=== PATIENT | male | born 1960 | race Caucasian/White ===

== ENCOUNTER 2017-12-31 17:45 | Emergency (ER) | payer OTHER ==
[~2017-12-31] VITALS: Ht 177.8 cm; Wt 113.6 kg
[2017-12-31 17:51] VITALS: BP 156/88
== END 2017-12-31 19:15 | disposition home or self-care (01) ==
LOC: ER 17:47
DX: S82.831A Other fracture of upper and lower end of right fibula, initial encounter for closed fracture (principal); X58.XXXA Exposure to other specified factors, initial encounter; Y93.89 Activity, other specified; Y92.89 Other specified places as the place of occurrence of the external cause; Y99.9 Unspecified external cause status
CPT/HCPCS: 73590; 73610; 99284

== ENCOUNTER 2018-01-20 13:35 | Outpatient (CLI) | payer OTHER ==
[~2018-01-20] VITALS: Ht 177.8 cm; Wt 112.7 kg
[2018-01-20 13:28] VITALS: BP 170/89
== END 2018-01-20 14:30 | disposition home or self-care (01) ==
LOC: ORTHO 13:35
PROVIDERS: ATTEND Nurse Practitioner Family
DX: S82.451A Displaced comminuted fracture of shaft of right fibula, initial encounter for closed fracture (principal); S93.01XA Subluxation of right ankle joint, initial encounter; S82.51XA Displaced fracture of medial malleolus of right tibia, initial encounter for closed fracture; W01.0XXA Fall on same level from slipping, tripping and stumbling without subsequent striking against object, initial encounter; Y93.89 Activity, other specified; Y92.89 Other specified places as the place of occurrence of the external cause; Y99.8 Other external cause status
CPT/HCPCS: 73590; 73610; 99213

== ENCOUNTER 2018-02-05 08:28 | Day surgery (SDC) | payer MEDICAID ==
[2018-02-03 15:30] LABS: BASOPHILS # (AUTO) 0.1 X10'3 (0-0.2); BASOPHILS % (AUTO) 1.2 % (0-1); EOSINOPHILS # (AUTO) 0.1 X10'3 (0-0.9); EOSINOPHILS % (AUTO) 1.7 % (0-6); LYMPHOCYTES # (AUTO) 1.8 X10'3 (1.1-4.8); LYMPHOCYTES % (AUTO) 25.9 % (21-51); MEAN CORPUSCULAR HEMOGLOBIN 31.2 PG (27.0-31.0); MEAN CORPUSCULAR HGB CONC 33.5 % (33.0-36.5); MEAN CORPUSCULAR VOLUME 93.3 FL (78-98); MEAN PLATELET VOLUME 6.8 FL (7.4-10.4); MONOCYTES # (AUTO) 0.6 X10'3 (0-0.9); MONOCYTES % (AUTO) 8.6 % (2-12); NEUTROPHILS # (AUTO) 4.4 X10'3 (1.8-7.7); NEUTROPHILS % (AUTO) 62.6 % (42-75); PRE OP HEMATOCRIT 50.8 % (42.0-52.0); PRE OP PLATELET COUNT 249 X10'3 (140-440); RED BLOOD COUNT 5.44 X10'6 (4.70-6.10); RED CELL DISTRIBUTION WIDTH 13.1 % (11.5-14.5)
[2018-02-03 15:46] LABS: ALBUMIN 3.4 G/DL (3.4-5.0); ALBUMIN/GLOBULIN RATIO 0.8 (1.1-1.5); ALKALINE PHOSPHATASE 124 IU/L (46-116); BLOOD UREA NITROGEN 11 MG/DL (7-18); BUN/CREATININE RATIO 10.8 (5.4-32.0); CALCIUM 8.9 MG/DL (8.5-10.1); CHLORIDE 101 MMOL/L (99-107); CREATININE 1.02 MG/DL (0.60-1.10); PRE OP ALT 60 U/L (30-65); PRE OP ANION GAP 7 (8-16); PRE OP AST 36 U/L (10-37); PRE OP BILIRUB, TOTAL 0.8 MG/DL (0.0-1.0); PRE OP GLUCOSE 99 MG/DL (70-104); PRE OP POTASSIUM 3.7 MMOL/L (3.4-5.1); PRE OP SODIUM 137 MMOL/L (135-145); TOTAL CARBON DIOXIDE 29.5 MMOL/L (24-32); TOTAL PROTEIN 7.5 G/DL (6.4-8.2); eGFR 75 ML/MIN
[2018-02-03 15:50] LABS: HEMOGLOBIN A1C 5.3 % (4.5-6.2)
[~2018-02-05] VITALS: Ht 177.8 cm; Wt 113.2 kg
[2018-02-05] VITALS (7 sets, daily range): BP systolic 108–150; BP diastolic 52–82
[~2018-02-05 08:28] MED LIST: NO HOME MEDS; cefazolin/dext.iso 2gm/100 ML IV ONE; famotidine 20mg tablet PO ONE; ringers solution, lacted 1,000 ML IV SCH; vancomycin inj 1,500 MG in normal saline 300ml IV soln IV ONE
[2018-02-05] MEDS ORDERED: ringers solution, lacted 1,000 ML IV SCH (08:44)
[2018-02-05] MEDS ORDERED: morphine 4 MG/ML inj SYRINge IV PRN ×2 (08:45)
[2018-02-05] MEDS ORDERED: meperidine/PF 25mg/ml syringe IV PRN ×3 (08:45)
[2018-02-05] MEDS ORDERED: proCHLORperazine 10 MG/2 ml inj IV PRN (08:45)
[2018-02-05] MEDS ORDERED: ondansetron/PF 4mg/2ml inj IV PRN (08:45)
[2018-02-05] MEDS ORDERED: ceFAZolin 1000mg inj ONE (09:50)
[2018-02-05] MEDS ORDERED: dexamethasone sod phosphate 10mg/ml inj ONE (10:28)
[2018-02-05] MEDS ORDERED: sevoflurane 250ml liquid IH ONE (10:28)
[2018-02-05] MEDS ORDERED: ondansetron/PF 4mg/2ml inj ONE (10:28)
[2018-02-05] MEDS ORDERED: fentaNYL/PF 50MCG/1 ML 2ML syringe ONE (10:31)
[2018-02-05] MEDS ORDERED: MIDAZolam 5mg/5ml vial ONE (10:31)
[2018-02-05] MEDS ORDERED: propofol inj 20 ML IV ONE (10:43)
[2018-02-05] MEDS ORDERED: ROPIVAcaine 0.5% (5mg/ml) 30ml vial ONE (10:51)
[2018-02-05] MEDS ORDERED: LIDOcaine 1%/PF 5ML 10 MG/ML VIAL ONE (10:51)
== END 2018-02-05 13:57 | disposition home or self-care (01) ==
LOC: PAS 08:28
PROVIDERS: ATTEND Orthopaedic Surgery
DX: S82.451A Displaced comminuted fracture of shaft of right fibula, initial encounter for closed fracture (principal); S82.441A Displaced spiral fracture of shaft of right fibula, initial encounter for closed fracture; M25.371 Other instability, right ankle; I45.81 Long QT syndrome; M19.90 Unspecified osteoarthritis, unspecified site; E66.01 Morbid (severe) obesity due to excess calories; G89.18 Other acute postprocedural pain; Z72.89 Other problems related to lifestyle; Z68.35 Body mass index [BMI] 35.0-35.9, adult; Z87.442 Personal history of urinary calculi; Z98.890 Other specified postprocedural states; W01.0XXA Fall on same level from slipping, tripping and stumbling without subsequent striking against object, initial encounter; Y93.89 Activity, other specified; Y92.89 Other specified places as the place of occurrence of the external cause; Y99.8 Other external cause status
CPT/HCPCS: 27784; 27829; 36415; 64450; 71046; 80053; 83036; 85025; 93005; A6449; C1713; J0690; J1100; J2001; J2250; J2405; J2704; J3010; J3370; J7120; A7000; J2795

== ENCOUNTER 2018-02-24 09:14 | Outpatient (CLI) | payer MEDICAID ==
[2018-02-24 09:13] VITALS: BP 180/107
[~2018-02-24 09:14] MED LIST changes: -cefazolin/dext.iso 2gm/100 ML IV ONE; -famotidine 20mg tablet PO ONE; -ringers solution, lacted 1,000 ML IV SCH; -vancomycin inj 1,500 MG in normal saline 300ml IV soln IV ONE
== END 2018-02-24 10:04 | disposition home or self-care (01) ==
LOC: ORTHO 09:14
PROVIDERS: ATTEND Nurse Practitioner Family
DX: S82.451G Displaced comminuted fracture of shaft of right fibula, subsequent encounter for closed fracture with delayed healing (principal); S82.54XG Nondisplaced fracture of medial malleolus of right tibia, subsequent encounter for closed fracture with delayed healing; M77.31 Calcaneal spur, right foot; Z72.89 Other problems related to lifestyle; X58.XXXD Exposure to other specified factors, subsequent encounter
CPT/HCPCS: 73590; 99213

== ENCOUNTER 2018-03-13 09:29 | Outpatient (CLI) | payer MEDICAID ==
[2018-03-13 09:29] VITALS: BP 167/104
[2018-03-13 09:40] VITALS: BP 165/106
== END 2018-03-13 10:42 | disposition home or self-care (01) ==
LOC: ORTHO 09:29
PROVIDERS: ATTEND Nurse Practitioner Family
DX: S82.841G Displaced bimalleolar fracture of right lower leg, subsequent encounter for closed fracture with delayed healing (principal); S82.451G Displaced comminuted fracture of shaft of right fibula, subsequent encounter for closed fracture with delayed healing; Z72.89 Other problems related to lifestyle; W01.0XXD Fall on same level from slipping, tripping and stumbling without subsequent striking against object, subsequent encounter
CPT/HCPCS: 73590; 99213; A4590

== ENCOUNTER 2018-04-09 11:33 | Outpatient (CLI) | payer MEDICAID ==
[2018-04-09 11:33] VITALS: BP 161/81
== END 2018-04-09 12:22 | disposition home or self-care (01) ==
LOC: ORTHO 11:33
PROVIDERS: ATTEND Nurse Practitioner Family
DX: S82.454 Nondisplaced comminuted fracture of shaft of right fibula (principal); Z72.89 Other problems related to lifestyle; S82.51XG Displaced fracture of medial malleolus of right tibia, subsequent encounter for closed fracture with delayed healing; W01.0XXD Fall on same level from slipping, tripping and stumbling without subsequent striking against object, subsequent encounter
CPT/HCPCS: 73590; 99213

== ENCOUNTER 2018-04-13 10:34 | Emergency (ER) | payer MEDICAID ==
[~2018-04-13] VITALS: Ht 177.8 cm; Wt 120.7 kg
[2018-04-13 11:10] VITALS: BP 136/86
== END 2018-04-13 12:58 | disposition home or self-care (01) ==
LOC: ER 10:35
DX: R22.2 Localized swelling, mass and lump, trunk (principal); R31.9 Hematuria, unspecified; F10.10 Alcohol abuse, uncomplicated
CPT/HCPCS: 99281

== ENCOUNTER 2018-05-21 11:29 | Outpatient (CLI) | payer MEDICAID ==
[2018-05-21 11:38] VITALS: BP 174/93
== END 2018-05-21 12:05 | disposition home or self-care (01) ==
LOC: ORTHO 11:29
PROVIDERS: ATTEND Nurse Practitioner Family
DX: S82.51XG Displaced fracture of medial malleolus of right tibia, subsequent encounter for closed fracture with delayed healing (principal); S82.831D Other fracture of upper and lower end of right fibula, subsequent encounter for closed fracture with routine healing; Z72.89 Other problems related to lifestyle; W01.0XXD Fall on same level from slipping, tripping and stumbling without subsequent striking against object, subsequent encounter
CPT/HCPCS: 73600; 99213

== ENCOUNTER 2018-07-02 08:34 | Outpatient (CLI) | payer MEDICAID | END 2018-07-02 09:29 | disposition home or self-care (01) | LOC: ORTHO 08:34 | PROVIDERS: ATTEND Orthopaedic Surgery | DX: S82.51XK Displaced fracture of medial malleolus of right tibia, subsequent encounter for closed fracture with nonunion (principal); S82.831D Other fracture of upper and lower end of right fibula, subsequent encounter for closed fracture with routine healing; Z72.89 Other problems related to lifestyle; W01.0XXD Fall on same level from slipping, tripping and stumbling without subsequent striking against object, subsequent encounter | CPT/HCPCS: 73610; 99213 ==

== ENCOUNTER 2019-04-12 21:57 | Emergency (ER) | payer OTHER ==
[~2019-04-12] VITALS: Ht 177.8 cm; Wt 106.8 kg
[2019-04-12 22:08] VITALS: BP 150/84
== END 2019-04-13 00:09 | disposition home or self-care (01) ==
LOC: ER 21:58
DX: M79.604 Pain in right leg (principal); Z87.442 Personal history of urinary calculi; Z98.890 Other specified postprocedural states; V49.9XXA Car occupant (driver) (passenger) injured in unspecified traffic accident, initial encounter; Y93.89 Activity, other specified; Y92.413 State road as the place of occurrence of the external cause; Y99.9 Unspecified external cause status
CPT/HCPCS: 73590; 73610; 99283

== ENCOUNTER 2020-03-08 16:24 | Emergency (ER) | payer MEDICAID, OTHER ==
[~2020-03-08] VITALS: Ht 177.8 cm; Wt 119.3 kg
[2020-03-08 18:38] VITALS: BP 169/119
[2020-03-08] MEDS ORDERED: ciprofloxacin 250mg tablet PO ONE (20:40)
[2020-03-08] MEDS ORDERED: CIPR-230 PO (20:44)
== END 2020-03-08 20:51 | disposition home or self-care (01) ==
LOC: ER 16:24
DX: L97.218 Non-pressure chronic ulcer of right calf with other specified severity (principal); R60.9 Edema, unspecified; Z87.442 Personal history of urinary calculi; Z98.890 Other specified postprocedural states; Z99.2 Dependence on renal dialysis
CPT/HCPCS: 93922; 93926; 99285

== ENCOUNTER 2020-03-22 08:38 | Outpatient (CLI) | payer MEDICAID ==
[~2020-03-22 08:38] MED LIST changes: +CIPR-230 PO
== END 2020-03-22 23:59 | disposition home or self-care (01) ==
LOC: WOUND CARE 08:38
PROVIDERS: ATTEND Nurse Practitioner
DX: T81.32XD Disruption of internal operation (surgical) wound, not elsewhere classified, subsequent encounter (principal); H53.8 Other visual disturbances; M19.90 Unspecified osteoarthritis, unspecified site; I10 Essential (primary) hypertension; Z99.2 Dependence on renal dialysis; Z98.890 Other specified postprocedural states; Y83.8 Other surgical procedures as the cause of abnormal reaction of the patient, or of later complication, without mention of misadventure at the time of the procedure
CPT/HCPCS: G0463

== ENCOUNTER 2020-03-29 09:06 | Outpatient (CLI) | payer MEDICAID ==
[2020-03-29] MEDS ORDERED: LIDOcaine 2% 5ml jelly ONE (09:27)
== END 2020-03-29 23:59 | disposition home or self-care (01) ==
LOC: WOUND CARE 09:06
PROVIDERS: ATTEND Nurse Practitioner Family
DX: T81.32XD Disruption of internal operation (surgical) wound, not elsewhere classified, subsequent encounter (principal); H53.8 Other visual disturbances; M19.90 Unspecified osteoarthritis, unspecified site; I10 Essential (primary) hypertension; Z99.2 Dependence on renal dialysis; Z98.890 Other specified postprocedural states; Z87.442 Personal history of urinary calculi; Y83.8 Other surgical procedures as the cause of abnormal reaction of the patient, or of later complication, without mention of misadventure at the time of the procedure
CPT/HCPCS: 97597

== ENCOUNTER 2020-04-06 08:46 | Outpatient (CLI) | payer MEDICAID ==
[2020-04-06] MEDS ORDERED: LIDOcaine 2% 5ml jelly ONE (09:15)
== END 2020-04-06 23:59 | disposition home or self-care (01) ==
LOC: WOUND CARE 08:46
PROVIDERS: ATTEND Nurse Practitioner
DX: T81.32XD Disruption of internal operation (surgical) wound, not elsewhere classified, subsequent encounter (principal); H53.8 Other visual disturbances; M19.90 Unspecified osteoarthritis, unspecified site; R60.9 Edema, unspecified; I10 Essential (primary) hypertension; Z99.2 Dependence on renal dialysis; Z98.890 Other specified postprocedural states; Z87.442 Personal history of urinary calculi; Y83.8 Other surgical procedures as the cause of abnormal reaction of the patient, or of later complication, without mention of misadventure at the time of the procedure
CPT/HCPCS: 11042

== ENCOUNTER 2020-08-19 22:47 | Emergency (ER) | payer MEDICAID, OTHER ==
[~2020-08-19] VITALS: Ht 177.8 cm; Wt 113.6 kg
[~2020-08-19 22:47] MED LIST changes: -CIPR-230 PO
[2020-08-19 23:37] VITALS: BP 166/91
[2020-08-20] MEDS ORDERED: predniSONE 20 mg tablet PO ONE (01:00)
[2020-08-20] MEDS ORDERED: cephalexin 250mg capsule PO ONE (01:00)
[2020-08-20] MEDS ORDERED: LORazepam 1 MG tablet PO ONE (01:00)
[2020-08-20] MEDS ORDERED: EMOL250L PERCUTAN (01:07)
[2020-08-20] MEDS ORDERED: KEN0.1O TP (01:07)
[2020-08-20] MEDS ORDERED: PRED20TA PO (01:07)
[2020-08-20] MEDS ORDERED: LORA-269 PO (01:07)
[2020-08-20] MEDS ORDERED: CEPH-585 PO ×2 (01:07→02:23)
== END 2020-08-20 01:25 | disposition home or self-care (01) ==
LOC: ER 22:49
DX: L29.9 Pruritus, unspecified (principal); L30.9 Dermatitis, unspecified; L03.90 Cellulitis, unspecified; Z87.442 Personal history of urinary calculi; Z87.81 Personal history of (healed) traumatic fracture
CPT/HCPCS: 99284; J7512

== ENCOUNTER 2022-10-15 09:50 | Emergency (ER) | payer MEDICAID ==
[~2022-10-15] VITALS: Ht 177.8 cm; Wt 111.0 kg
[~2022-10-15 09:50] MED LIST changes: +CEPH-585 PO; +EMOL250L PERCUTAN; +LORA-269 PO
[2022-10-15 09:58] VITALS: BP 136/79
[2022-10-15 10:34] LABS: CLARITY,URINE SLIGHTLY CLOUDY (Clear); COLOR,URINE YELLOW (Yellow); GLUCOSE, URINE NEGATIVE (Neg); KETONES,URINE NEGATIVE (Neg); LEUKOCYTE ESTERASE ,URINE NEGATIVE (Neg); NITRITES, URINE NEGATIVE (Neg); OCCULT BLOOD,URINE TRACE-INTACT (Neg); PROTEIN,URINE TRACE mg/dl (Neg)
[2022-10-15 10:37] LABS: LYMPHOCYTES # (AUTO) 0.5 X10'3 (1.1-4.8); LYMPHOCYTES % (AUTO) 3.8 % (21-51); MEAN CORPUSCULAR HEMOGLOBIN 33.4 PG (27.0-31.0)
[2022-10-15 10:39] LABS: BASOPHILS % (AUTO) 0.4 % (0-1); EOSINOPHILS % (AUTO) 0.2 % (0-6); HEMATOCRIT 53.2 % (42.0-52.0); MEAN CORPUSCULAR HGB CONC 34.7 g/dL (33.0-36.5); MEAN CORPUSCULAR VOLUME 96.4 FL (78-98); MEAN PLATELET VOLUME 7.4 FL (7.4-10.4); MONOCYTES # (AUTO) 0.7 X10'3 (0-0.9); MONOCYTES % (AUTO) 5.5 % (2-12); NEUTROPHILS # (AUTO) 11.9 X10'3 (1.8-7.7); NEUTROPHILS % (AUTO) 90.1 % (42-75); PLATELET COUNT 138 X10'3 (140-440); RED BLOOD COUNT 5.52 X10'6 (4.70-6.10); RED CELL DISTRIBUTION WIDTH 15.7 % (11.5-14.5); WHITE BLOOD COUNT 13.2 X10'3 (4.5-11.0)
[2022-10-15 10:41] LABS: UA COLLECTION TYPE CLN CATCH MIDSTREAM
[2022-10-15 10:42] LABS: HEMOGLOBIN 18.5 g/dl (14.0-17.9)
[2022-10-15 10:45] LABS: BACTERIA,URINE 1+ /HPF (Neg); RBC,URINE 0-2 /HPF (0-2)
[2022-10-15 10:46] LABS: MUCUS STRANDS MODERATE /LPF (Neg); SQUAMOUS EPITHELIAL CELL,UR MANY /LPF (FEW); TRANSITIONAL EPI CELLS,URINE FEW /HPF
[2022-10-15 10:50] LABS: ALANINE AMINOTRANSFERASE 65 U/L (12-78); ALBUMIN 3.5 G/DL (3.4-5.0); ALKALINE PHOSPHATASE 129 IU/L (46-116); AMYLASE 54 U/L (25-115); ANION GAP 9 (8-16); ASPARTATE AMINO TRANSFERASE 59 U/L (10-37); BILIRUBIN,TOTAL 1.1 MG/DL (0.1-1.0); BLOOD UREA NITROGEN 12 MG/DL (7-18); BUN/CREATININE RATIO 9.5 (10.0-20.0); CALCIUM 8.7 MG/DL (8.5-10.1); CHLORIDE 104 MMOL/L (99-107); CREATININE 1.26 MG/DL (0.60-1.10); GLUCOSE 110 MG/DL (70-104); LIPASE 176 U/L (73-393); POTASSIUM 3.5 MMOL/L (3.5-5.1); SODIUM 138 MMOL/L (135-145); TOTAL CARBON DIOXIDE 24.6 MMOL/L (24-32); TOTAL PROTEIN 7.1 G/DL (6.4-8.2); eGFR 58 ML/MIN
[2022-10-15] MEDS ORDERED: normal saline 1000ml 1,000 ML IV ONE (11:50)
[2022-10-15] MEDS ORDERED: CEPH-585 PO (12:51)
== END 2022-10-15 13:21 | disposition home or self-care (01) ==
LOC: ER 09:50
DX: L03.115 Cellulitis of right lower limb (principal); R10.31 Right lower quadrant pain; R50.9 Fever, unspecified; Z87.81 Personal history of (healed) traumatic fracture; Z79.899 Other long term (current) drug therapy; Z98.890 Other specified postprocedural states
CPT/HCPCS: 80053; 81001; 82150; 83690; 85025; 93971; 96360; 99284; J7030